=== PATIENT | female | born 1965 | race Caucasian/White ===

== ENCOUNTER 2018-03-29 13:26 | Emergency (ER) | payer MEDICAID, OTHER | END 2018-03-29 16:28 | disposition home or self-care (01) | LOC: FTE 13:26 | DX: N60.02 Solitary cyst of left breast (principal); F17.210 Nicotine dependence, cigarettes, uncomplicated | CPT/HCPCS: 76642; 99284-25 ==

== ENCOUNTER 2019-06-05 18:33 | Emergency (ER) | payer OTHER, MEDICAID ==
[2019-06-05] MEDS: DEXAMETHASONE 10 MG/ML 1 ML INJ IV (20:00)
[2019-06-05] MEDS: SOD CHLORIDE 0.9% 500 ML IV (20:00)
[2019-06-05] MEDS: IPRATROPIUM (NEB) 0.5 MG/2.5 ML AMP NEB (20:09)
[2019-06-05] MEDS: ALBUTEROL 0.083% (NEB) 2.5 MG/3 ML AMP NEB (20:09)
== END 2019-06-05 21:38 | disposition home or self-care (01) ==
LOC: FTE 18:33
DX: J44.1 Chronic obstructive pulmonary disease with (acute) exacerbation (principal); Z87.891 Personal history of nicotine dependence
CPT/HCPCS: 93005; 94664; 96374; 99284-25